=== PATIENT | female | born 1990 | race Caucasian/White ===

== ENCOUNTER 2017-04-12 18:51 | Emergency (ER) | payer MEDICAID ==
[2017-04-12 19:06] VITALS: RESP 16; TEMP 97.7
--- NOTE | 2017-04-12 19:16 | EDPHY ---
H & P Stated Complaint: RLQ abd pain x 1 week. denies N/V/D/fever. Time Seen by Provider: 04/12/17 19:00 HPI/ROS: CHIEF COMPLAINT: Right lower quadrant pain History by patient HISTORY OF PRESENT ILLNESS: 18-year-old woman with a history of cervical cancer presents complaining of 1 week of right lower quadrant pain which has gotten much worse in the past 2 days. She describes the pain as a pressure pulling and initially she said it felt like it feels when she ovulated. Symptoms began when she was in the middle of her cycle. Pain is also worse when she moves around or when she strains to have a bowel movement. Her last bowel movement was yesterday and was normal. There has been no diarrhea or constipation. She has had no associated nausea or vomiting and she has been eating as usual and this does not make the pain worse. Today she has had some anorexia with it. She denies any fever chills. She has any dysuria, urgency frequency or hematuria. There has been no vaginal bleeding the patient has noticed some increased white discharge. She says she and her partner tested for STDs 1 month ago and was all negative. Pain does not radiate to her back. She has not taken anything for it. 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 - Family History Significant Family History: No pertinent family hx - Social History Smoking Status: Never smoked - Physical Exam Exam: General Appearance: Alert, comfortable, nontoxic-appearing. Eyes: Pupils equal and round no pallor or injection. ENT, Mouth: Mucous membranes moist. Respiratory: Normal, effort, There are no retractions, lungs are clear to auscultation. Cardiovascular: Regular rate and rhythm. Gastrointestinal: Abdomen is soft, no masses, bowel sounds normal, mild right lower quadrant tenderness to deep palpation, no rebound or guarding. Back: No CVA tenderness Pelvic: Positive copious thick white discharge, mild cervical motion tenderness , mild right adnexal tenderness, no masses Neurological: Awake, alert and oriented x 3, no pronator drift, normal gait, no pronator drift Skin: Warm and dry, no rashes. Musculoskeletal: Neck is supple nontender. Extremities are symmetrical, full range of motion. Psychiatric: Patient has normal affect, there is no agitation. Constitutional: Initial Vital Signs Temperature (C) 36.5 C 04/12/17 19:03 Heart Rate 87 04/12/17 19:03 Respiratory Rate 16 04/12/17 19:03 Blood Pressure 117/79 04/12/17 19:03 O2 Sat (%) 97 04/12/17 19:03 O2 Delivery Mode Room Air Allergies/Adverse Reactions: eye dilation drops Allergy (Uncoded 04/12/17 19:02) Home Medications: Medication Instructions Recorded Control Pill 04/12/17 metroNIDAZOLE [Flagyl 500 mg (*)] 500 mg PO BID #14 tab 04/12/17 Medical Decision Making ED Course/Re-evaluation: [age] year female presents with right lower quadrant pain with minimal tenderness history fairly inconsistent with acute appendicitis. Pelvic exam was concerning for infection or ovarian pathology. Right upper quadrant and pelvic ultrasound were obtained. These were read by the radiologist as a normal appendix and a simple 4.5 right simple ovarian cyst and no Doppler evidence of torsion. A wet prep was positive for clue cells consistent with bacterial vaginosis as well as yeast GC chlamydia cultures are pending at this time. Patient requested oral analgesics for her pain was given ibuprofen with some improvement. We discussed the ultrasound findings and need for follow-up for the simple cyst with a primary care physician in 3-4 months. Patient is treated for bacterial vaginosis and we discussed return precautions.. - Data Points Laboratory Results: 04/12/17 04/12/17 04/12/17 19:25 19:25 19:10 Urine Color Urine Appearance Urine pH Ur Specific [place] Urine Protein Urine Ketones Urine Blood Urine Nitrate Urine Bilirubin Urine Urobilinogen Ur Leukocyte Esterase Urine Glucose Urine Test NEGATIVE Trichomonas (Wet Prep) NO TRICHOMONAS C.trachomatis RNA (TMA) Pending N.gonorrhoeae RNA (TMA) Pending 04/12/17 19:10 Urine Color YELLOW Urine Appearance CLEAR Urine pH 7.0 (5.0-7.5) Ur Specific [place] 1.020 (1.002-1.030) Urine Protein NEGATIVE (NEGATIVE) Urine Ketones NEGATIVE (NEGATIVE) Urine Blood NEGATIVE (NEGATIVE) Urine Nitrate NEGATIVE (NEGATIVE) Urine Bilirubin NEGATIVE (NEGATIVE) Urine Urobilinogen 0.2 EU EU (0.2-1.0) Ur Leukocyte Esterase NEGATIVE (NEGATIVE) Urine Glucose NEGATIVE (NEGATIVE) Urine Test Trichomonas (Wet Prep) C.trachomatis RNA (TMA) N.gonorrhoeae RNA (TMA) Medications Given: Discontinued Medications Ibuprofen (Motrin) 600 mg PO EDNOW ONE Stop: 04/12/17 19:39 Last Admin: 04/12/17 19:46 Dose: 600 mg Departure - Departure Disposition: Home, Routine, Self-Care Clinical Impression: Right ovarian cyst, Bacterial vaginosis Abdominal pain Qualifiers: Abdominal location: right lower quadrant Qualified Code(s): R10.31 - Right lower quadrant pain Condition: Good Instructions: Bacterial Vaginosis (ED), Ovarian Cyst (ED) Additional Instructions: You were seen by Dr. Sheila Peterson today. Take ibuprofen as needed for pain. Take antibiotics as prescribed. Please follow up with POW[facility] or your primary care physician and have a repeat ultrasound for your right ovarian cyst in 3-4 months to make sure it has resolved. Return for any worsening or new concerns. Referrals: NONE *PRIMARY CARE P,. [Primary Care Provider] - As per Instructions Angei Marsh DO [Doctor of Osteopathy] - As per Instructions Prescriptions: metroNIDAZOLE [Flagyl 500 mg (*)] 500 mg PO BID #14 tab
[2017-04-12] MEDS ORDERED: IBUPROFEN 200 MG TAB PO ONE (19:38)
[2017-04-12 20:38] LABS: COLOR YELLOW; LEUKOCYTE ESTERASE,URINE NEGATIVE (NEGATIVE); NITRITE,URINE NEGATIVE (NEGATIVE)
[2017-04-12 20:39] VITALS: PULSE 70
[2017-04-12 20:55] VITALS: BP 118/70; O2SAT 98
[2017-04-14 13:10] LABS: CHLAMYDIA AMPLIFICATION GENPRB NEGATIVE (NEGATIVE)
== END 2017-04-12 21:10 | disposition home or self-care (01) ==
LOC: CED 18:51
DX: N83.201 Unspecified ovarian cyst, right side (principal); N76.0 Acute vaginitis; B96.89 Other specified bacterial agents as the cause of diseases classified elsewhere; J45.909 Unspecified asthma, uncomplicated; Z85.41 Personal history of malignant neoplasm of cervix uteri
CPT/HCPCS: 76705-PO; 76856-PO; 81003-PO; 81025-PO; 87210-PO

== ENCOUNTER 2017-10-07 19:45 | Emergency (ER) | payer MEDICAID ==
[2017-10-07 19:56] VITALS: RESP 16; TEMP 97.9; O2SAT 96
--- NOTE | 2017-10-07 20:20 | EDPHY ---
H & P Smoking Status: Never smoked Time Seen by Provider: 10/07/17 20:00 HPI/ROS: CHIEF COMPLAINT: Numbness on the left side of the face HISTORY OF PRESENT ILLNESS: Patient presents with facial numbness for 2 days since Tuesday when she was driving home. She saw emergency department last night at [facility] had a negative head CT. She presents today with persistent left-sided facial numbness and some neck pressure which she describes as circumferential. No recent injury or acceleration or deceleration injury and no vertigo. She says the neck is a little bit more uncomfortable with swallowing or talking. Left-sided facial numbness is not associated with facial weakness or difficulty with vision or double vision. No headache. She does not relate any other neurologic symptoms such as vertigo or trouble walking or trouble with speech balance or thought. REVIEW OF SYSTEMS: Eye: no change in vision or double vision ENT: no sore throat Cardiac: no chest pain or syncope Pulmonary: no cough or SOB Abdomen: no vomiting, diarrhea, abdominal pain Musculoskeletal: HPI Skin: no rash Neuro: no headache Constitutional: no fever : no urinary symptoms A comprehensive 10 point review of systems is otherwise negative aside from elements mentioned in the history of present illness. PAST MEDICAL HISTORY: Includes childhood asthma, benign tumor from left breast , cervical cancer. Social history: Here with her boyfriend General Appearance: Alert and conversant, cooperative. Eyes: No scleral icterus. ENT, Mouth: Normal mucous membranes. Respiratory: Normal respiratory effort, breath sounds equal, lungs are clear to auscultation. Cardiovascular: Regular rate and rhythm. Gastrointestinal: Abdomen is soft and non tender. Neurological: Alert and oriented x3. Normally conversant. Face symmetric, normal movement and sensation in all extremities. Negative for pronator drift or tremor, normal [id number] bilaterally. Decreased sensation on the left side of the face to light touch but present. Skin: Warm and dry, no rashes. Musculoskeletal: No peripheral edema and no joint swelling. Psychiatric: Not agitated. Emergency Department course/MDM: MRI head and neck angiography discussed and consented. Differential broad and includes but not limited to peripheral neuropathy, multiple sclerosis, intracranial mass or stroke, great vessel dissection. Ativan 1 mg IV as patient says she has anxiety and was concerned about claustrophobia. Signed out to MARIELA Uriarte with neurology followup if MRI head and neck normal. ( Dmitry Treadwell) Constitutional: Initial Vital Signs Temperature (C) 36.6 C 10/07/17 19:54 Heart Rate 82 10/07/17 19:54 Respiratory Rate 16 10/07/17 19:54 Blood Pressure 150/86 H 10/07/17 19:54 O2 Sat (%) 96 10/07/17 19:54 O2 Delivery Mode Room Air Allergies/Adverse Reactions: eye dilation drops Allergy (Uncoded 10/07/17 19:53) Home Medications: Medication Instructions Recorded Control Pill 04/12/17 Medical Decision Making - Diagnostics Imaging Results: Imaging Impressions Brain MRI 10/07/17 20:16 Impression: Normal MRI of the brain without contrast. MR Angiogram of the Neck Clinical Indications: Neck pain and left-sided facial numbness in a 27-year- old female Technique: After a preliminary timing bolus run, a three-dimensional vascular djcn-if-qenoso study was performed from the upper chest to the skull base, using a total of 10 mL Gadavist (gadolinium) intravenously. Images were manipulated by the radiologist at the computer workstation. Findings: The aortic arch has typical 3-vessel branching anatomy. The common carotid arteries and vertebral arteries are patent. The common carotid bifurcations demonstrate no evidence of flow-limiting stenosis, occlusion, or dissection. The vertebral arteries are patent without evidence of obstruction or dissection. Impression: MRA of the cervical carotids and vertebrals demonstrates no evidence of flow-limiting stenosis, occlusion, or dissection. Measurements of carotid stenosis is based on the residual internal carotid diameter with [place] Symptomatic Carotid Endarterectomy Trial (NASCET) based stenosis levels. Results called and discussed with Dr. Kalani Umaña on 10/07/2017 at 21:59 Neck MRA 10/07/17 20:16 Impression: Normal MRI of the brain without contrast. MR Angiogram of the Neck Clinical Indications: Neck pain and left-sided facial numbness in a 27-year- old female Technique: After a preliminary timing bolus run, a three-dimensional vascular ldja-iz-yaihpw study was performed from the upper chest to the skull base, using a total of 10 mL Gadavist (gadolinium) intravenously. Images were manipulated by the radiologist at the computer workstation. Findings: The aortic arch has typical 3-vessel branching anatomy. The common carotid arteries and vertebral arteries are patent. The common carotid bifurcations demonstrate no evidence of flow-limiting stenosis, occlusion, or dissection. The vertebral arteries are patent without evidence of obstruction or dissection. Impression: MRA of the cervical carotids and vertebrals demonstrates no evidence of flow-limiting stenosis, occlusion, or dissection. Measurements of carotid stenosis is based on the residual internal carotid diameter with [place] Symptomatic Carotid Endarterectomy Trial (NASCET) based stenosis levels. Results called and discussed with Dr. Kalani Umaña on 10/07/2017 at 21:59 ED Course/Re-evaluation: MRI results per Dr. Jitendra Younger are normal. The results were discussed with the patient. She will follow up with Neurology in the office. (Kandice Uriarte) Differential Diagnosis: Differential considered including but not limited to intracranial mass or bleed , ischemic stroke, multiple sclerosis or other vasculitis or demyelinating disease, great vessel dissection. (Dmitry Treadwell) - Data Points Laboratory Results: Laboratory Results 10/07/17 20:20 10/07/17 20:20 10/07/17 10/07/17 10/07/17 20:20 20:20 20:20 WBC 7.84 10^3/uL 10^3/uL (3.80-9.50) RBC 5.05 10^6/uL 10^6/uL (4.18-5.33) Hgb 15.0 g/dL g/dL (12.6-16.3) Hct 43.5 % % (38.0-47.0) MCV 86.1 fL fL (81.5-99.8) MCH 29.7 pg pg (27.9-34.1) MCHC 34.5 g/dL g/dL (32.4-36.7) RDW 13.1 % % (11.5-15.2) Plt Count 340 10^3/uL 10^3/uL (150-400) MPV 9.0 fL fL (8.7-11.7) Neut % (Auto) 46.3 % % (39.3-74.2) Lymph % (Auto) 40.2 % % (15.0-45.0) [place] % (Auto) 8.7 % % (4.5-13.0) Eos % (Auto) 3.7 % % (0.6-7.6) Baso % (Auto) 0.8 % % (0.3-1.7) Nucleat RBC Rel Count 0.0 % % (0.0-0.2) Absolute Neuts (auto) 3.64 10^3/uL 10^3/uL (1.70-6.50) Absolute Lymphs (auto) 3.15 10^3/uL H 10^3/uL (1.00-3.00) Absolute Monos (auto) 0.68 10^3/uL 10^3/uL (0.30-0.80) Absolute Eos (auto) 0.29 10^3/uL 10^3/uL (0.03-0.40) Absolute Basos (auto) 0.06 10^3/uL 10^3/uL (0.02-0.10) Absolute Nucleated RBC 0.00 10^3/uL 10^3/uL (0-0.01) Immature Gran % 0.3 % % (0.0-1.1) Immature Gran # 0.02 10^3/uL 10^3/uL (0.00-0.10) Sodium 139 mEq/L mEq/L (134-144) Potassium 4.1 mEq/L mEq/L (3.5-5.2) Chloride 102 mEq/L mEq/L (97-110) Carbon Dioxide 24 mEq/l mEq/l (22-31) Anion Gap 13 mEq/L mEq/L (8-16) BUN 15 mg/dL mg/dL (7-23) Creatinine 0.8 mg/dL mg/dL (0.6-1.0) Estimated GFR > 60 Glucose 78 mg/dL mg/dL (70-100) Calcium 9.8 mg/dL mg/dL (8.5-10.4) Beta HCG, Qual NEGATIVE Medications Given: Discontinued Medications Lorazepam (Ativan Injection) 1 mg IVP EDNOW ONE Stop: 10/07/17 20:24 Last Admin: 10/07/17 20:28 Dose: 1 mg Departure - Departure Disposition: Home, Routine, Self-Care Clinical Impression: Facial paresthesia Condition: Good Instructions: Paresthesia (ED) Referrals: Robby Giang MD [Medical Doctor] - As per Instructions (Call to make an appointment. )
[2017-10-07] MEDS ORDERED: GADOBUTROL 10 ML VIAL IVP ONE (20:21)
[2017-10-07] MEDS ORDERED: LORazepam 2 MG/ML INJ IVP ONE (20:23)
[2017-10-07 20:26] LABS: % IMMATURE GRANULYOCYTES 0.3 % (0.0-1.1); ABSOLUTE IMMATURE GRANULOCYTES 0.02 10^3/uL (0.00-0.10); ADD DIFF? NO; ADD MORPH? NO; ADD SCAN? NO; ATYPICAL LYMPHOCYTE FLAG 0 (0-99); FRAGMENT RBC FLAG 0 (0-99); HEMATOCRIT 43.5 % (38.0-47.0); LEFT SHIFT FLG 0 (0-99); LIPEMIA HEMOLYSIS FLAG 90 (0-99); MEAN CELL HEMOGLOBIN 29.7 pg (27.9-34.1); MEAN CELL HEMOGLOBIN CONCENTR. 34.5 g/dL (32.4-36.7); MEAN CELL VOLUME 86.1 fL (81.5-99.8); PLATELET CLUMPS FLAG 0 (0-99); PLATELET COUNT 340 10^3/uL (150-400); RED BLOOD CELL COUNT 5.05 10^6/uL (4.18-5.33); RED CELL DISTRIBUTION WIDTH 13.1 % (11.5-15.2)
[2017-10-07 20:41] LABS: ANION GAP 13 mEq/L (8-16); CALCIUM 9.8 mg/dL (8.5-10.4); CARBON DIOXIDE 24 mEq/l (22-31); CHLORIDE 102 mEq/L (97-110); CREATININE 0.8 mg/dL (0.6-1.0); GLOMERULAR FILTRATION RATE > 60; GLUCOSE 78 mg/dL (70-100); POTASSIUM 4.1 mEq/L (3.5-5.2); SODIUM 139 mEq/L (134-144)
[2017-10-07 22:16] VITALS: BP 129/76; PULSE 90
== END 2017-10-07 22:15 | disposition home or self-care (01) ==
DX: R20.2 Paresthesia of skin (principal); J45.909 Unspecified asthma, uncomplicated; Z85.41 Personal history of malignant neoplasm of cervix uteri
CPT/HCPCS: 96374; A9585; J2060

== ENCOUNTER → 2018-09-21 | Outpatient (CLI) | payer OTHER | LOC: BRMIMAGING 09:15 | PROVIDERS: ATTEND Internal Medicine | DX: N64.4 Mastodynia (principal); N63.20 Unspecified lump in the left breast, unspecified quadrant | CPT/HCPCS: 76641-PO ==

== ENCOUNTER → 2018-11-16 | Outpatient (CLI) | payer OTHER ==
[~2018-11-16] MED LIST: GADOBUTROL 10 ML VIAL IVP ONE
== END ==
LOC: FIMAGING 10-23 19:00
PROVIDERS: ATTEND Internal Medicine
DX: D24.2 Benign neoplasm of left breast (principal)
CPT/HCPCS: 77047; A9585